=== PATIENT | female | born 1980 | race Caucasian/White ===

== ENCOUNTER 2017-03-26 04:00 | Inpatient (IN) | payer OTHER ==
--- NOTE | ~2017-03-26 | DS ---
Unit #: [id number] #: [id number] Patient: JANICE GORDON [id number] [place] [address] [id number] I MR#: [id number] NAME: JANICE GORDON ROOM: [facility] Age: 36 Sex: F Admission Date: 03/26/2017 : 1980 Discharge Date: 03/28/2017 Attending Physician: Jose F Ardon M.D. Primary Care Physician: Primary Care Physician No DISCHARGE SUMMARY REASON FOR ADMISSION The patient is a 36-year-old , white female, admitted to the [facility] unit for opioid detox. HOSPITAL COURSE The patient was admitted to the [facility] unit and continued on previously prescribed paroxetine 60 mg daily. Her detox was a fairly uneventful one. By 03/28/2017, she was in agreement with plan for followup in the intensive outpatient program and requested discharge, it was so ordered. FINAL DIAGNOSES Opioid use disorder, dysthymic disorder. DISPOSITION ON DISCHARGE The patient is discharged on the following medications; Paxil 60 mg daily for depression. DISCHARGE INSTRUCTIONS No dietary or physical restrictions were placed upon the patient at the time of discharge. FOLLOWUP Followup will take place in the intensive outpatient program provided by this facility. PROGNOSIS The patient's prognosis is considered fair. Dictated by... Jose F Ardon M.D. CB/caitlyn TD: 03/29/2017 03:52 JOB #: [id number] Unit #: [id number] #: [id number] Patient: JANICE GORDON DISCHARGE SUMMARY Page 1 of 1 X Jose F Ardon MD X DISCHARGE SUMMARY
--- NOTE | ~2017-03-26 | HP ---
Unit #: [id number] #: [id number] Patient: JANICE GORDON [id number] [place] [address] [id number] I MR#: [id number] NAME: JANICE GORDON ROOM: [facility] Age: 36 Sex: F Admission Date: 03/26/2017 : 1980 Attending Physician: Jose F Ardon M.D. Admitting Physician: Jose F Ardon M.D. Primary Care Physician: Primary Care Physician No HISTORY AND PHYSICAL HISTORY OF PRESENT ILLNESS The patient is a 36-year-old female who states she is here due to heroin abuse. PAST MEDICAL HISTORY None. PAST SURGICAL HISTORY Significant for repair of a Chiari malformation. ALLERGIES None. SOCIAL HISTORY Negative except for marijuana and heroin. FAMILY HISTORY Noncontributory. REVIEW OF SYSTEMS CONSTITUTIONAL: No fever or chills. HEENT: Denies any sore throat, ear pain or runny nose. CARDIOVASCULAR: Denies chest pain, irregular heart rhythm or palpitations. CHEST: Denies shortness of breath or cough. No hemoptysis. GASTROINTESTINAL: Denies nausea, vomiting, diarrhea or chronic constipation. ENDOCRINE: Denies history of increased thirst or urination. No recent significant weight loss or gain. GENITOURINARY: Denies dysuria, frequency, or hematuria. SKIN: Denies any rashes. HEMATOLOGIC: Denies history of increased bleeding or bruising. MUSCULOSKELETAL: Denies any hot, swollen joints. No generalized muscle pain. NEUROLOGIC: Denies problems with vision or speech. No frequent, severe headaches. No numbness, tingling or weakness in any extremities. Denies loss of bladder or bowel control. CURRENT MEDICATIONS 1. Paxil 60 mg p.o. daily. 2. Oxybutynin ER 5 mg p.o. daily. PHYSICAL EXAMINATION GENERAL: Alert, oriented, in no acute distress, although patient is Unit #: [id number] #: [id number] Patient: JANICE GORDON tremulous, tearful and states that she is nauseous. VITAL SIGNS: Temperature 97.4, heart rate 90, respirations 18, blood pressure 138/98. HEIGHT: 5 feet 2 inches. WEIGHT: 206 pounds. SKIN: Warm and dry without rash or lesion. Tattoo to the left chest, left forearm, bilateral lower extremities. Small scars to the upper thoracic spine. HEENT: Normocephalic. TMs not viewed. Oral and nasal passages clear. Conjunctivae clear. PERRLA. EOMs intact. NECK: Supple without lymphadenopathy or thyromegaly. HEART: Regular rate and rhythm without murmur. LUNGS: Clear. ABDOMEN: Soft, nontender, without masses or hepatosplenomegaly. : Not done. EXTREMITIES: No evidence of cyanosis, clubbing or edema. Moves all without focal deficit. NEUROLOGICAL: Grossly within normal limits. Cranial Nerves: II: Visual lopez are intact. III, IV AND : Extraocular movements are intact. Pupils are equal, round and reactive to light. V: Facial sensation is grossly normal. VII: Facial movements and expression are normal. VIII: Auditory acuity grossly intact. IX, X: Uvula is midline. Phonation is normal. XI: Patient shrugs shoulders and turns head normally. XII: Tongue protrudes in the midline. Sensory and Motor Function: Sensory and motor sensation is grossly normal. Motor: moves all extremities well. Coordination: Gait is normal. Deep Tendon Reflexes: Intact. IMPRESSION Psychiatric admission. RECOMMENDATIONS PSYCHIATRIC: Per psychiatrist. MEDICAL: No contraindications to participate in facility's activities. MEDICAL PROGNOSIS Good. Dictated by... More Resendez/demetrius TD: 03/26/2017 17:44 JOB #: [id number] Unit #: [id number] #: [id number] Patient: HEIDIJANICE HISTORY AND PHYSICAL Page 1 of 1 X Roula Lee APR X HISTORY AND PHYSICAL
--- NOTE | ~2017-03-26 | PA ---
Unit #: [id number] #: [id number] Patient: JANICE GORDON [id number] [facility] [address] [place] [address] [id number] I MR#: [id number] NAME: JANICE GORDON ROOM: [facility] Age: 36 Sex: F Admission Date: 03/26/2017 : 1980 Date of Assessment: 03/26/2017 Attending Physician: Jose F Ardon M.D. Admitting Physician: Jose F Ardon M.D. Primary Care Physician: Primary Care Physician No PSYCHIATRIC ASSESSMENT IDENTIFYING INFORMATION The patient is a 36-year-old white female admitted for opioid detox. INFORMANT(S) Patient. RELIABILITY Good. CHIEF COMPLAINT Detoxing. HISTORY OF PRESENT ILLNESS The patient is a 36-year-old white female with a history of opioid dependence. She states that she has been using heroin as well as illicitly obtained pain pills. The patient is in significant physical distress today. She reports that her relapse occurred approximately 2 weeks ago. She had last been hospitalized at this facility in February 2016 and states that she had maintained sobriety up until about 2 weeks ago. The patient reports that she is "unhappy with her life" and that this was the precipitant to her detox though she does not specify what particularly is making her unhappy. The patient's COWS score on admission was 17 but she appears to be in significant physical distress vomiting copiously just prior to this evaluation despite having received an IM dose of Phenergan. For more complete history of present illness, please refer to previous dictated notes. PAST PSYCHIATRIC HISTORY Reviewed, no changes. FAMILY HISTORY/SOCIAL HISTORY Reviewed, no changes. MEDICAL HISTORY Reviewed, no changes. MEDICATION HISTORY 1. Paxil. 2. Oxybutynin. ALLERGIES None. Unit #: [id number] #: [id number] Patient: JANICE GORDON MENTAL STATUS EXAM At this time, reveals the patient to be an obese white female appearing her stated age. She is in significant physical distress during interview. She is awake, alert, oriented in all spheres. Her mood is dysphoric. Her affect blunted. Speech is generally relevant and coherent. There are no gross deficits in memory or cognition noted. Intelligence is judged to be in the average range based on fund of knowledge. The patient is cooperative throughout the interview. She is currently denying suicidal/homicidal ideation or psychotic features. Judgement and insight appear to be intact. ASSETS AND LIABILITIES Patient's assets, motivation for change. Liabilities, lack of resources. ADMITTING DIAGNOSES 1. Opioid use disorder. 2. Dysthymic disorder. 3. Overactive bladder. 4. Obesity. PSYCHIATRIC PLAN/TREATMENT GOALS The patient remains hospitalized for safety and stabilization. We will continue previously prescribed oxybutynin and Paxil and the patient has been placed on routine detoxification protocol for opioids. She will participate in appropriate marshall and milieu activities. DISCHARGE PLANNING Followup to take place through the auspices of [facility] mental health resources. I will recommend that the patient consider residential treatment and/or the intensive outpatient program provided by this facility. ESTIMATED LENGTH OF STAY Three to five days. Dictated by... Jose F Ardon M.D. SILVANO/demetrius TD: 03/26/2017 16:49 JOB #: [id number] PSYCHIATRIC ASSESSMENT Page 1 of 1 X Jose F Ardon MD X PSYCHIATRIC ASSESSMENT
--- NOTE | ~2017-03-26 | PN ---
Unit #: [id number] #: [id number] Patient: JANICE GORDNO [id number] [facility] [address] [place] [address] [id number] I MR#: [id number] NAME: JANICE GORDON ROOM: [facility] Age: 36 Sex: F Admission Date: 03/26/2017 : 1980 Attending Physician: Jose F Ardon M.D. Admitting Physician: Jose F Ardon M.D. Primary Care Physician: Primary Care Physician Sharon KATZ PROGRESS NOTES DATE 03/27/2017 DISCUSSION The patient is abed resting comfortably. Staff reports no management issues. The patient offers no new complaints. Dictated by... Jose F Ardon M.D. CB/luke TD: 03/28/2017 22:51 JOB #: [id number] [facility] PROGRESS NOTES Page 1 of 1 X Jose F Ardon MD X PROGRESS NOTE
[~2017-03-26 04:00] MED LIST: BENTYL20 MG PO; CARAFATE; CIPRO PO; CLEOCIN HCL300 M1 PO; COMPAZINE25 MG PR; CYMBALTA PO; CYMBALTA30 MG PO; DIFLUCAN100 MG PO; K-DUR20 ME1 DOB; K-DUR20 ME1 PO; KLONOPIN0.5 MG PO; LORTAB 5-325 M1 EACH PO; NO MEDICATIONS; ONDANSETRON4 MG/TAB PO; PAXIL; PAXIL30 MG PO; PHENERGAN SUPP25 M1 PR; PROTONIX PO; TRAMADOL HCL100 MG PO; TYLENOL #3 PO; VOLTAREN50 MG PO; VOLTAREN75 MG PO; ZOFRAN ODT4 MG PO; ZOFRAN ODT4 MG/UDTAB PO; ZOFRAN PO; ZOFRANODT PO
== END 2017-03-28 16:01 | disposition home or self-care (01) | DRG 897 ==
LOC: P1E 08:09
PROC: HZ2ZZZZ Detoxification Services for Substance Abuse Treatment (ICD-10-PCS; principal; 2017-03-26)
DX: F11.20 Opioid dependence, uncomplicated (principal); N32.81 Overactive bladder; F34.1 Dysthymic disorder; E66.9 Obesity, unspecified; Z68.37 Body mass index [BMI] 37.0-37.9, adult
CPT/HCPCS: J2550

== ENCOUNTER 2017-05-05 | Inpatient (IN) | payer OTHER ==
--- NOTE | ~2017-05-05 | PN ---
Unit #: [id number] #: [id number] Patient: JANICE JC [id number] [facility] [address] [place] [address] [id number] I MR#: [id number] NAME: JANICE JC. ROOM: P184 Age: 36 Sex: F Admission Date: 05/05/2017 : 1980 Attending Physician: Jose F Ardon M.D. Admitting Physician: Jose F Ardon M.D. Primary Care Physician: Primary Care Physician Sharon KATZ PROGRESS NOTES DATE May 08, [address] Jose F Ardon DISCUSSION Upon today's assessment, the patient was found lying in bed, she reports "I feel a little better." She reports that she is having difficulty with sleeping and requests a p.r.n. for insomnia, at this time she reports that her detox is milder in nature and has not been nauseated or had diarrhea today. PLAN Add trazodone 100 mg p.r.n. q.h.s. for insomnia for sleep and continue with the detox protocol. Dictated by... LIBRADO Rojas TD: 05/10/2017 09:58 JOB #: [id number] [facility] PROGRESS NOTES Page 1 of 1 X DEMETRICE CARR PROGRESS NOTE
--- NOTE | ~2017-05-05 | PN ---
Unit #: [id number] #: [id number] Patient: FELECIA JC [id number] [facility] [address] [place] [address] [id number] I MR#: [id number] NAME: FELECIA JC. ROOM: [facility]184 Age: 36 Sex: F Admission Date: 05/05/2017 : 1980 Attending Physician: Jose F Ardon M.D. Admitting Physician: Jose F Ardon M.D. Primary Care Physician: Primary Care Physician Sharon KATZ PROGRESS NOTES DATE OF SERVICE 05/09/2017 DISCUSSION Felecia was seen today coverage for Dr. Ardon. She continues to have psoy-tf-dbjuxtnf detox symptoms today including cramping, sweating, nausea and physical discomfort. She is alert and fully oriented. Her memory and concentration are fair. Her thought processes are logical with no active psychosis. She denies active suicidal ideation. ASSESSMENT Opiate dependence. PLAN Continue current detox protocol Dictated by... Demetrius Dorado M.D. MICHAEL/luke TD: 05/14/2017 23:07 JOB #: [id number] [facility] PROGRESS NOTES Page 1 of 1 X Demetrius Dorado MD X PROGRESS NOTE
--- NOTE | ~2017-05-05 | HP ---
Unit #: [id number] #: [id number] Patient: FELECIA JC [id number] [place] [address] [id number] I MR#: [id number] NAME: FELECIA JC. ROOM: [facility]184 Age: 36 Sex: F Admission Date: 05/05/2017 : 1980 Attending Physician: Jose F Ardon M.D. Admitting Physician: Jose F Ardon M.D. Primary Care Physician: Primary Care Physician No HISTORY AND PHYSICAL HISTORY OF PRESENT ILLNESS Felecia is a 36 year old admitted to [facility] because of her continued drug use. PAST MEDICAL HISTORY 1. Long history of polysubstance abuse to include heroin. 2. History of Chiari malformation. 3. Obesity. 4. History of kidney stones. PAST SURGICAL HISTORY 1. Pericardial window. 2. Chiari malformation resection. 3. Multiple lithotripsies. 4. Cholecystectomy. 5. Tubal ligation. ALLERGIES No known drug allergies. SOCIAL HISTORY She does not drink or use alcohol but admits to using marijuana and heroin. FAMILY HISTORY Medically noncontributory. REVIEW OF SYSTEMS CONSTITUTIONAL: No fever or chills. HEENT: Denies any sore throat, ear pain or runny nose. CARDIOVASCULAR: Denies chest pain, irregular heart rhythm or palpitations. CHEST: Denies shortness of breath or cough. No hemoptysis. GASTROINTESTINAL: Denies nausea, vomiting, diarrhea or chronic constipation. ENDOCRINE: Denies history of increased thirst or urination. No recent significant weight loss or gain. GENITOURINARY: Denies dysuria, frequency, or hematuria. SKIN: Denies any rashes. HEMATOLOGIC: Denies history of increased bleeding or bruising. MUSCULOSKELETAL: Denies any hot, swollen joints. No generalized muscle pain. NEUROLOGIC: Denies problems with vision or speech. No frequent, severe headaches. No numbness, tingling or weakness in any extremities. Denies loss of bladder or bowel control. Unit #: [id number] #: [id number] Patient: FELECIA JC CURRENT MEDICATIONS 1. Detox protocol. 2. Paxil 60 mg daily. 3. Ditropan 10 mg daily. PHYSICAL EXAMINATION GENERAL: Alert, well-nourished, in no apparent distress. VITAL SIGNS: Blood pressure 110/76, heart rate 80, respirations 16, temperature 98.6. WEIGHT: 230. HEIGHT: 5 feet 2 inches. SKIN: Warm and dry without rash or lesion. HEENT: Normocephalic. TMs not viewed. Oral and nasal passages clear. Conjunctivae clear. PERRLA. EOMs intact. NECK: Supple without lymphadenopathy or thyromegaly. HEART: Regular rate and rhythm without murmur. LUNGS: Clear. ABDOMEN: Soft, nontender. : Not done. EXTREMITIES: No evidence of cyanosis, clubbing or edema. Moves all without focal deficit. NEUROLOGICAL: Grossly within normal limits. Cranial Nerves: II: Visual lopez are intact. III, IV AND : Extraocular movements are intact. Pupils are equal, round and reactive to light. V: Facial sensation is grossly normal. VII: Facial movements and expression are normal. VIII: Auditory acuity grossly intact. IX, X: Uvula is midline. Phonation is normal. XI: Patient shrugs shoulders and turns head normally. XII: Tongue protrudes in the midline. Sensory and Motor Function: Sensory and motor sensation is grossly normal. Motor: moves all extremities well. Coordination: Gait is normal. Deep Tendon Reflexes: Intact. IMPRESSION Psychiatric admission. RECOMMENDATIONS PSYCHIATRIC: Per psychiatrist. MEDICAL: See no contraindications to participate in facility's activities. MEDICAL PROGNOSIS Good. MEDICAL CONDITION Stable. Dictated by... Rosanne Elkins P.A.-C. for Emilee Hood/demetrius TD: 05/05/2017 23:19 JOB #: [id number] Unit #: [id number] #: [id number] Patient: FELECIA JC HISTORY AND PHYSICAL Page 1 of 1 X Rosanne Elkins HISTORY AND PHYSICAL
--- NOTE | ~2017-05-05 | PA ---
Unit #: [id number] #: [id number] Patient: JANICE JC [id number] [place] [address] [id number] I MR#: [id number] NAME: JANICE JC. ROOM: [facility]184 Age: 36 Sex: F Admission Date: 05/05/2017 : 1980 Date of Assessment: 05/05/2017 Attending Physician: Jose F Ardon M.D. Admitting Physician: Jose F Ardon M.D. Primary Care Physician: Primary Care Physician No PSYCHIATRIC ASSESSMENT IDENTIFYING INFORMATION The patient is a 36-year-old white female admitted with a history of opioid and cannabis and sedative hypnotic abuse. CHIEF COMPLAINT None given. INFORMANT(S) Chart. Patient cannot be aroused for interview. HISTORY OF PRESENT ILLNESS The patient is a 36-year-old white female last discharged from this facility on 03/28/2017. She was at that time scheduled to restart treatment in the intensive outpatient program but did not comply and relapsed on heroin, cannabis, and alprazolam almost immediately. The patient is today noted to be soundly sleeping during attempted interview by this physician and cannot be aroused. She was reporting positive suicidal ideation at the time of admission with plan to jump from a high place. On admission, her COWS score was a 12. Her CIWA score was not evaluated. For more complete history of present illness, please refer to previously dictated notes. PAST PSYCHIATRIC HISTORY Reviewed, no changes. PAST MEDICAL HISTORY Reviewed, no changes. MEDICATIONS Paxil, Neurontin, and Oxybutynin. ALLERGIES None. FAMILY HISTORY Reviewed, no changes. SOCIAL HISTORY Reviewed, no changes. MENTAL STATUS EXAMINATION Examination at this time reveals the patient to be a morbidly obese soundly sleeping white female. She is snoring loudly, and multiple Unit #: [id number] #: [id number] Patient: JANICE JC attempts to arouse her are unsuccessful. ASSETS AND LIABILITIES The patient's assets are to be assessed. Liabilities: Lack of resources. DIAGNOSTIC IMPRESSION 1. Opioid use disorder. 2. Cannabis use disorder. 3. Sedative-hypnotic disorder. 4. Morbid obesity. 5. History of chronic pain. TREATMENT PLAN The patient remains hospitalized for safety and stabilization. Routine detoxification protocol for opioids has been initiated. The patient will participate in appropriate order of milieu activities. ESTIMATED LENGTH OF STAY 3 to 5 days. Dictated by... Emilee Penny TD: 05/05/2017 12:57 JOB #: [id number] PSYCHIATRIC ASSESSMENT Page 1 of 1 X Jose F Ardon MD X PSYCHIATRIC ASSESSMENT
--- NOTE | ~2017-05-05 | PN ---
Unit #: [id number] #: [id number] Patient: JANICE JC [id number] [facility] [address] [place] [address] [id number] I MR#: [id number] NAME: JANICE JC. ROOM: P184 Age: 36 Sex: F Admission Date: 05/05/2017 : 1980 Attending Physician: Jose F Ardon M.D. Admitting Physician: Jose F Ardon M.D. Primary Care Physician: Primary Care Physician hSaron ERAZO NOTES DATE 05/04/2017 DISCUSSION This patient was seen and evaluated on May 04, 2017. Upon today's assessment, the patient was found resting in bed, appearing in mild discomfort. She had complaints of moderate signs and symptoms of withdrawal at this time as evidenced by mild to moderate diffuse joint aches and pains, nausea, stomach cramps, diarrhea, and restlessness. She does, however, report that p.r.n.s are effective. Plan at this time is to continue current medication and detox protocol. Dictated by... LIBRADO Rojas/van TD: 05/10/2017 09:52 JOB #: [id number] [facility] ERAZO NOTES Page 1 of 1 X DEMETRICE CARR PROGRESS NOTE
[2017-05-05 09:44] LABS: BASOPHIL% 0.8 % (0-2.5); EOSINOPHIL# 0.2 X10e3 (0-0.7); EOSINOPHIL% 3.6 % (0.0-7.0); HEMATOCRIT 35.7 % (35.0-45.0); HEMOGLOBIN 11.8 gm/dL (12.0-16.0); LYMPHOCYTE# 2.5 X10e3 (1.0-3.5); LYMPHOCYTE% 45.5 % (17.0-45.0); MEAN CELL VOLUME 87.5 FL (83-96); MEAN CORPUSCULAR HGB CONC 33.1 g/dL (30-36); MEAN PLATELET VOLUME 9.4 FL (6.5-11.5); MONOCYTE# 0.5 X10e3 (0-1.0); MONOCYTE% 8.6 % (3.0-12.0); NEUTROPHIL# 2.3 X10e3 (1.5-7.1); NEUTROPHIL% 41.5 % (40-75); PLATELET COUNT 212 X10e3 (140-420); RED BLOOD COUNT 4.08 X10e (3.90-5.30); RED CELL DISTRIBUTION WIDTH 14.6 % (11.0-15.5); WHITE BLOOD COUNT 5.5 X10e3 (4.0-10.5)
[2017-05-05 09:58] LABS: DIFF IND NO
[2017-05-05 10:26] LABS: ALBUMIN SERUM 3.5 g/dL (3.5-5.0); BILIRUBIN,TOTAL 0.5 mg/dL (0.2-2.0); CALCIUM SERUM 9.4 mg/dL (8.4-10.2); CREATININE SERUM 0.6 mg/dL (0.6-1.4); GLOM FILT RATE Estimated 118.1 mL/min (>60); POTASSIUM 3.4 mmol/L (3.5-5.1); PROTEIN TOTAL SERUM 6.1 g/dL (6.0-8.3)
[2017-05-06 10:54] LABS: URINE APPEARANCE CLEAR; URINE BILIRUBIN NEG (NEG); URINE BLOOD NEG (NEG); URINE COLOR YELLOW; URINE GLUCOSE NEG (NEG); URINE KETONE NEG (NEG); URINE LEUKOCYTE ESTERASE NEG (NEG); URINE NITRATE NEG (NEG); URINE PH 6.5 (5-8); URINE PROTEIN NEG (NEG); URINE UROBILINOGEN 0.2 MG/DL (NEG)
[2017-05-06 11:26] LABS: AMPHETAMINE NEG (NEG); BARBITURATES NEG (NEG); BENZODIAZEPINES POS (NEG); COCAINE NEG (NEG); MARIJUANA POS (NEG); OPIATES POS (NEG); TRICYCLIC ANTIDEPRESSANTS NEG (NEG); U METHADONE NEG (NEG)
== END 2017-05-10 11:35 | disposition home or self-care (01) | DRG 897 ==
LOC: P1E 05:09
PROVIDERS: Specialist
PROC: HZ2ZZZZ Detoxification Services for Substance Abuse Treatment (ICD-10-PCS; principal; 2017-05-05)
DX: F11.10 Opioid abuse, uncomplicated (principal); R45.851 Suicidal ideations; Z68.41 Body mass index [BMI] 40.0-44.9, adult; F12.10 Cannabis abuse, uncomplicated; F13.10 Sedative, hypnotic or anxiolytic abuse, uncomplicated; G89.29 Other chronic pain; E66.01 Morbid (severe) obesity due to excess calories; Z87.442 Personal history of urinary calculi; Z90.49 Acquired absence of other specified parts of digestive tract; Z98.51 Tubal ligation status
CPT/HCPCS: 80053; 80307; 81003; 84703; 85025; 86592

== ENCOUNTER 2017-07-14 19:00 | Inpatient (IN) | payer OTHER ==
[~2017-07-14] VITALS: Ht 157.5 cm; Wt 99.8 kg
--- NOTE | ~2017-07-14 | PN ---
Unit #: [id number] #: [id number] Patient: JANICE ANDERSON [id number] [facility] [address] [place] [address] [id number] I MR#: [id number] NAME: JANICE ANDERSON ROOM: P171 Age: 36 Sex: F Admission Date: 07/14/2017 : 1980 Attending Physician: Jose F Ardon M.D. Admitting Physician: Jose F Ardon M.D. Primary Care Physician: Keely Doctor Not In System [facility] PROGRESS NOTES DATE 07/16/2017 DISCUSSION The patient is abed and continues to complain of significant physical discomfort related to opioid withdrawal. She reports that after her last hospitalization she was "still sick" and was unable to participate in the intensive outpatient program indicating that we may need to extent her stay in the hospital a day or so to assure that her detox is complete at the time of discharge. The patient is expressing interest in initiation of Vivitrol. Dictated by... Emilee Penny TD: 07/16/2017 13:23 JOB #: [id number] [facility] PROGRESS NOTES Page 1 of 1 X Jose F Ardon MD PROGRESS NOTE
--- NOTE | ~2017-07-14 | PN ---
Unit #: [id number] #: [id number] Patient: JANICE ANDERSON [id number] [facility] [address] [place] [address] [id number] I MR#: [id number] NAME: JANICE ANEDRSON ROOM: P171 Age: 36 Sex: F Admission Date: 07/14/2017 : 1980 Attending Physician: Jose F Ardon M.D. Admitting Physician: Jose F Ardon M.D. Primary Care Physician: Keely Doctor Not In System [facility] PROGRESS NOTES DATE 07/17/2017 DISCUSSION The patient continues to complain of significant symptoms of opioid withdrawal. I have suggested that she remain in the hospital for one further day of detoxification prior to discharge and we will hope to discharge her as early as tomorrow with followup to take place in the intensive outpatient program. Dictated by... Jose F Ardon M.D. CB/luke TD: 07/18/2017 00:18 JOB #: [id number] [facility] PROGRESS NOTES Page 1 of 1 X Jose F Ardon MD PROGRESS NOTE
--- NOTE | ~2017-07-14 | PA ---
Unit #: [id number] #: [id number] Patient: JANICE ANDERSON [id number] [place] [address] [id number] I MR#: [id number] NAME: JANICE ANDERSON. ROOM: 71 Age: 36 Sex: F Admission Date: 07/14/2017 : 1980 Date of Assessment: 07/15/2017 Attending Physician: Jose F Ardon M.D. Admitting Physician: Jose F Ardon M.D. Primary Care Physician: Generic Doctor Not In System PSYCHIATRIC ASSESSMENT IDENTIFYING INFORMATION The patient is a 36-year-old white female admitted with suicidal ideation and increasing abuse of opioids. CHIEF COMPLAINT None given. INFORMANT(S) Chart. Patient cannot be aroused for interview. HISTORY OF PRESENT ILLNESS The patient is a 36-year-old unmarried white female who was admitted to the [address] [place] [address] for opioid detox. The patient was also admitting positive suicidal ideation with plan to overdose on knus-gsp-acrhkfk medications. She has a history of at least previous suicide attempts dating to the year 1998. The patient has been prescribed Paxil in the past but has been off this medication for the past 5 days per her report. She denies any history of intravenous drug use but reports that she has been using heroin by means of intranasal insufflation as well as illicitly obtained opioid medications. Attempts to interview the patient today are unsuccessful as she cannot be aroused. PAST PSYCHIATRIC HISTORY As noted previously, the patient had been on Paxil in the past and has a history of previous treatment for depression. PAST MEDICAL HISTORY Significant for history of overactive bladder. MEDICATIONS Paxil, Oxybutynin ER. ALLERGIES None reported. FAMILY HISTORY Noncontributory. SOCIAL HISTORY The patient lives with a male friend who is also a heroin addict. She is presently unemployed and is a smoker. MENTAL STATUS EXAMINATION Unit #: [id number] #: [id number] Patient: JANICE ANDERSON Examination at this time reveals the patient to be a soundly sleeping white female. Multiple attempts to arouse the patient are daily unsuccessful. ASSETS AND LIABILITIES The patient's assets are to be assessed. Liabilities: Lack of resources. DIAGNOSTIC IMPRESSION Opioid use disorder. TREATMENT PLAN The patient remains hospitalized for safety and stabilization. We will restart the patient's previously prescribed paroxetine, and I will ask her community mental health social worker to see her regarding initiation of followup for chemical dependence treatment following discharge. Routine detoxification protocol has been initiated, and SP1 precautions are in place. Dictated by... Emilee Penny TD: 07/15/2017 15:03 JOB #: [id number] PSYCHIATRIC ASSESSMENT Page 1 of 1 X Jose F Ardon MD X PSYCHIATRIC ASSESSMENT
--- NOTE | ~2017-07-14 | HP ---
Unit #: [id number] #: [id number] Patient: FELECIA ANDERSON [id number] [place] [address] [id number] MR#: [id number] NAME: FELECIA ANDERSON. ROOM: P171 Age: 36 Sex: F Admission Date: 07/14/2017 : 1980 Attending Physician: Jose F Ardon M.D. Admitting Physician: Jose F Ardon M.D. Primary Care Physician: Keely Doctor Not In System HISTORY AND PHYSICAL HISTORY OF PRESENT ILLNESS Felecia is a 36 year old admitted to [facility] because of her continued drug use which includes snorting heroin. She has had other admissions to this facility for the same. PAST MEDICAL HISTORY 1. Long history of poly-illicit substance abuse to include snorting heroin. 2. History of Chiari malformation. 3. Obesity. 4. History of kidney stones. PAST SURGICAL HISTORY 1. Pericardial window. 2. Chiari malformation resection. 3. Multiple lithotripsies. 4. Cholecystectomy. 5. Tubal ligation. ALLERGIES No known drug allergies. SOCIAL HISTORY She does not smoke or use alcohol but admits to illicit drug use to include heroin and marijuana. FAMILY HISTORY Medically noncontributory. REVIEW OF SYSTEMS CONSTITUTIONAL: No fever or chills. HEENT: Denies any sore throat, ear pain or runny nose. CARDIOVASCULAR: Denies chest pain, irregular heart rhythm or palpitations. CHEST: Denies shortness of breath or cough. No hemoptysis. GASTROINTESTINAL: Denies nausea, vomiting, diarrhea or chronic constipation. ENDOCRINE: Denies history of increased thirst or urination. No recent significant weight loss or gain. GENITOURINARY: Denies dysuria, frequency, or hematuria. SKIN: Denies any rashes. HEMATOLOGIC: Denies history of increased bleeding or bruising. MUSCULOSKELETAL: Denies any hot, swollen joints. No generalized muscle pain. Unit #: [id number] #: [id number] Patient: FELECIA ANDERSON NEUROLOGIC: Denies problems with vision or speech. No frequent, severe headaches. No numbness, tingling or weakness in any extremities. Denies loss of bladder or bowel control. CURRENT MEDICATIONS 1. Detox protocol. 2. Paxil 60 mg daily. 3. Ditropan XL 5 mg daily. PHYSICAL EXAMINATION GENERAL: Alert, well-nourished, in no apparent distress. VITAL SIGNS: Blood pressure 100/58, heart rate 80, respirations 16, temperature 98.6. WEIGHT: 220. HEIGHT: 5 feet 2 inches. SKIN: Warm and dry without rash or lesion. HEENT: Normocephalic. TMs not viewed. Oral and nasal passages clear. Conjunctivae clear. PERRLA. EOMs intact. NECK: Supple without lymphadenopathy or thyromegaly. HEART: Regular rate and rhythm without murmur. LUNGS: Clear. ABDOMEN: Soft, nontender. : Not done. EXTREMITIES: No evidence of cyanosis, clubbing or edema. Moves all without focal deficit. NEUROLOGICAL: Grossly within normal limits. Cranial Nerves: II: Visual lopez are intact. III, IV AND : Extraocular movements are intact. Pupils are equal, round and reactive to light. V: Facial sensation is grossly normal. VII: Facial movements and expression are normal. VIII: Auditory acuity grossly intact. IX, X: Uvula is midline. Phonation is normal. XI: Patient shrugs shoulders and turns head normally. XII: Tongue protrudes in the midline. Sensory and Motor Function: Sensory and motor sensation is grossly normal. Motor: moves all extremities well. Coordination: Gait is normal. Deep Tendon Reflexes: Intact. IMPRESSION Psychiatric admission. RECOMMENDATIONS PSYCHIATRIC: Per psychiatrist. MEDICAL: See no contraindication to participate in facility's activities. MEDICAL PROGNOSIS Good. MEDICAL CONDITION Stable. Dictated by... Rosanne Elkins P.A.-C. for Emilee Hood/[facility] Unit #: [id number] #: [id number] Patient: FELECIA ANDERSON TD: 07/15/2017 20:52 JOB #: [id number] HISTORY AND PHYSICAL Page 1 of 1 X Rosanne Elkins HISTORY AND PHYSICAL
--- NOTE | ~2017-07-14 | DS ---
Unit #: [id number] #: [id number] Patient: JANICE ANDERSON [id number] [place] [address] [id number] MR#: [id number] NAME: JANICE ANDERSON. ROOM: [facility] Age: 36 Sex: F Admission Date: 07/14/2017 : 1980 Discharge Date: 07/18/2017 Attending Physician: Jose F Ardon M.D. Primary Care Physician: Generic Doctor Not In System DISCHARGE SUMMARY REASON FOR ADMISSION The patient is a 36-year-old white female, admitted to the [facility] unit with history of opioid dependence. HOSPITAL COURSE The patient was admitted to the [address] [place] [address] and continued on previously prescribed medications including Paxil. Her stay in the hospital was a brief and uneventful one. She participated actively within the therapeutic milieu and had little in the way of signs or symptoms of withdrawal. By 07/18, she requested discharge and plan was to follow up through the auspices of the intensive outpatient program provided by this facility, per her request discharge was ordered. DISCHARGE DIAGNOSES [place] I Opioid use disorder. Dysthymic disorder. [place] II [place] III Chiari malformation. Overactive bladder. [place] IV [place] V DISPOSITION ON DISCHARGE This patient was discharged on the following medications: 1. Ditropan XL 5 mg once daily for overactive bladder 2. Paxil 60 mg daily for depression PROGNOSIS The patient's prognosis is considered fair. DIET AND ACTIVITY No dietary or physical restrictions were placed on the patient at the time of discharge. Followup to take place through the auspices of the chemical dependence intensive outpatient program provided by this facility. Dictated by... Unit #: [id number] #: [id number] Patient: JANICE ANDERSON Jose F Ardon M.D. CB/paxton TD: 07/20/2017 10:08 JOB #: [id number] DISCHARGE SUMMARY Page 1 of 1 X Jose F Ardon MD DISCHARGE SUMMARY
[2017-07-15 09:50] LABS: BASOPHIL% 0.8 % (0-2.5); EOSINOPHIL# 0.2 X10e3 (0-0.7); EOSINOPHIL% 4.1 % (0.0-7.0); HEMATOCRIT 35.5 % (35.0-45.0); HEMOGLOBIN 12.1 gm/dL (12.0-16.0); LYMPHOCYTE# 2.3 X10e3 (1.0-3.5); LYMPHOCYTE% 45.3 % (17.0-45.0); MEAN CELL VOLUME 89.3 FL (83-96); MEAN CORPUSCULAR HEMOGLOBIN 30.4 PG (28-34); MEAN PLATELET VOLUME 9.5 FL (6.5-11.5); MONOCYTE# 0.5 X10e3 (0-1.0); MONOCYTE% 9.4 % (3.0-12.0); NEUTROPHIL% 40.4 % (40-75); PLATELET COUNT 206 X10e3 (140-420); RED BLOOD COUNT 3.98 X10e (3.90-5.30); RED CELL DISTRIBUTION WIDTH 13.6 % (11.0-15.5)
[2017-07-15 10:02] LABS: DIFF IND NO
[2017-07-15 10:03] LABS: URINE APPEARANCE CLOUDY; URINE BILIRUBIN NEG (NEG); URINE BLOOD TRACE (NEG); URINE COLOR DK YELLOW; URINE GLUCOSE NEG (NEG); URINE KETONE TRACE (NEG); URINE LEUKOCYTE ESTERASE 3+ (NEG); URINE NITRATE NEG (NEG); URINE PROTEIN 1+ (NEG); URINE SPECIFIC GRAVITY 1.024 (1.003-1.035)
[2017-07-15 10:05] LABS: ALBUMIN SERUM 3.4 g/dL (3.5-5.0); BILIRUBIN,TOTAL 0.4 mg/dL (0.2-2.0); BUN/CREATININE RATIO 18.33; CALCIUM SERUM 9.1 mg/dL (8.4-10.2); CREATININE SERUM 0.6 mg/dL (0.6-1.4); GLOM FILT RATE Estimated 118.1 mL/min (>60); POTASSIUM 4.1 mmol/L (3.5-5.1); PROTEIN TOTAL SERUM 6.3 g/dL (6.0-8.3)
[2017-07-15 10:07] LABS: URBCS1 AUWI 0-2 /[HPF] (0-2); URINE SQUAMOUS EPITHELIAL CELL OCC /[HPF]
[2017-07-15 10:23] LABS: AMPHETAMINE NEG (NEG); BARBITURATES NEG (NEG); BENZODIAZEPINES NEG (NEG); COCAINE NEG (NEG); MARIJUANA POS (NEG); OPIATES POS (NEG); TRICYCLIC ANTIDEPRESSANTS NEG (NEG); U METHADONE NEG (NEG)
[2017-07-15 10:37] LABS: UWBCS1 AUWI 25-50 (0-5)
[2017-07-15 10:38] LABS: URINE BACTERIA AUWI 2+ (NEGATIVE); URINE MUCUS PRESENT
== END 2017-07-18 14:55 | DRG 897 ==
LOC: P1E 20:30
PROVIDERS: Specialist
PROC: HZ2ZZZZ Detoxification Services for Substance Abuse Treatment (ICD-10-PCS; principal; 2017-07-14)
DX: F11.10 Opioid abuse, uncomplicated (principal); R45.851 Suicidal ideations; Z90.49 Acquired absence of other specified parts of digestive tract; Z98.51 Tubal ligation status; Z87.442 Personal history of urinary calculi; F34.1 Dysthymic disorder; N32.81 Overactive bladder
CPT/HCPCS: 80053; 80307; 81003; 84703; 85025; 86592; J2550